=== PATIENT | female | born 1985 | race Two or more races ===

== ENCOUNTER 2021-09-20 01:52 | Emergency (ER) | payer OTHER, MEDICAID ==
[~2021-09-20] VITALS: Ht 157.5 cm; Wt 129.3 kg
[2021-09-20 02:23] VITALS: BP 114/70
[2021-09-20] MEDS ORDERED: HYDROcodone-ACET 10/325MG TAB PO ONE (02:30)
[2021-09-20] MEDS ORDERED: HYDR-4798 PO (02:40)
== END 2021-09-20 03:00 | disposition home or self-care (01) ==
LOC: ER 01:52
DX: M25.562 Pain in left knee (principal); I89.0 Lymphedema, not elsewhere classified; I10 Essential (primary) hypertension